=== PATIENT | male | born 2005 | race Caucasian/White ===

== ENCOUNTER 2023-02-02 11:06 | Emergency (ER) | payer OTHER, SELFPAY ==
[2023-02-02] MEDS ORDERED: Ketorolac Tromethamine 30 MG/ML VIAL ONE (11:28)
== END 2023-02-02 11:54 | disposition home or self-care (01) ==
LOC: ERS 11:06
DX: M54.50 Low back pain, unspecified (principal); M25.512 Pain in left shoulder
CPT/HCPCS: 96372; 99283; J1885

== ENCOUNTER 2023-07-01 10:49 | Emergency (ER) | payer SELFPAY ==
[2023-07-01] MEDS ORDERED: Ketorolac Tromethamine 30 MG (1 mL) VIAL ONE (11:12)
[2023-07-01] MEDS ORDERED: Lidocaine 4% Patch TD SCH (11:30)
[2023-07-01] MEDS ORDERED: Transdermal Patch Removal TOP SCH (23:00)
== END 2023-07-01 12:15 | disposition home or self-care (01) ==
LOC: ERS 10:49
DX: M54.41 Lumbago with sciatica, right side (principal); M41.86 Other forms of scoliosis, lumbar region; X50.1XXA Overexertion from prolonged static or awkward postures, initial encounter; Y99.0 Civilian activity done for income or pay
CPT/HCPCS: 72072; 72100; 96372; J1885

== ENCOUNTER 2023-07-15 18:34 | Emergency (ER) | payer SELFPAY ==
[2023-07-15] MEDS ORDERED: Boostrix 0.5 ML (Tdap) VIAL (>/=7 yrs of age) ONE (18:59)
== END 2023-07-15 19:22 | disposition home or self-care (01) ==
LOC: ERS 18:34
DX: T23.202A Burn of second degree of left hand, unspecified site, initial encounter (principal); F17.290 Nicotine dependence, other tobacco product, uncomplicated; X11.0XXA Contact with hot water in bath or tub, initial encounter; Z23 Encounter for immunization
CPT/HCPCS: 90471; 90715; 99284